=== PATIENT | female | born 2000 | race Caucasian/White ===

== ENCOUNTER 2024-03-08 14:27 | Emergency (ER) | payer OTHER, SELFPAY ==
[2024-03-08 14:55] VITALS: BP 94/76; PULSE 73; RESP 16; TEMP 37.3; O2SAT 98
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
== END 2024-03-08 15:04 | disposition home or self-care (01) ==
PROVIDERS: Emergency Provider Nurse Practitioner Family
DX: Z04.1 Encounter for examination and observation following transport accident (principal)
CPT/HCPCS: 99202; G0463